=== PATIENT | female | born 1995 | race Caucasian/White ===

== ENCOUNTER 2022-07-04 01:47 | Emergency (ER) | payer SELFPAY ==
[2022-07-04] MEDS ORDERED: LEVETIRACETAM 500 MG/5 ML VIAL IV ONE (01:59)
[2022-07-04] MEDS ORDERED: NA CHLORIDE 0.9% 500 ML ONE (01:59)
[2022-07-04] MEDS ORDERED: NA CHLORIDE 0.9% 100 ML IV ONE ×2 (02:19→02:40)
[2022-07-04 02:28] LABS: Urine Bacteria None Seen /HPF (<20); Urine Mucus Slight /HPF (None Seen); Urine RBC <5 /HPF (None Seen)
[2022-07-04 02:28] LABS: Urine Blood Negative (Negative); Urine Glucose Negative (Negative); Urine Protein Negative (Negative); Urine Specific Gravity >=1.030 (1.005-1.030)
[2022-07-04 02:31] LABS: Absolute Lymphocytes (CBC) 2.3 K/uL (0.7-4.9); Hematocrit 37.2 % (36.0-45.0); Lymphocytes % 30.3 % (15.3-44.8); MCV 95.4 fL (80-100); MPV 8.2 fL (7.6-11.3)
[2022-07-04] MEDS ORDERED: PIPERACIL/TAZO 3.375 GM VIAL IV ONE (02:40)
--- NOTE | 2022-07-04 03:04 | ER ---
Nurse's Notes [facility] Name: Senia Siddiqui Age: 27 yrs Sex: Female : 1995 Arrival Date: 07/04/2022 Time: 01:49 Bed 4 Private MD: Diagnosis: Epileptic seizures related to external causes, not intractable, without status epilepticus Presentation: 07/04 01:50 Chief complaint: EMS states: seizure activity x 4 over last 2 hours each lasting approx kl 30 sec to 1 min pt has history of seizure not currently on seizure medication. Coronavirus screen:. Risk Assessment: Do you want to hurt yourself or someone else? Patient reports no desire to harm self or others. 01:50 Method Of Arrival: EMS: [facility] 01:50 Acuity: PERRI 3 kl Triage Assessment: 01:52 General: Appears in no apparent distress. slender, Behavior is calm, cooperative. Pain: kl Complains of pain in headache. Neuro: Level of Consciousness is awake, alert, obeys commands, Oriented to person, place, time, situation, Speech is normal, Facial symmetry appears normal, Pupils are PERRLA. Historical: - Allergies: 01:51 No Known Allergies; kl - Home Meds: 01:51 None [Active]; kl - PMHx: 01:51 Seizure; Migraine; kl - Social history:: Smoking status: Reported history of juuling and/or vaping. - Family history:: not pertinent. - Hospitalizations: : No recent hospitalization is reported. Screenin:52 [facility] ED Fall Risk Assessment (Adult) History of falling in the last 3 months, jb4 including since admission No falls in past 3 months (0 pts) Confusion or Disorientation No (0 pts) Score/Fall Risk Level 0 - 2 = Low Risk Oriented to surroundings, Maintained a safe environment. Abuse screen: Denies threats or abuse. Nutritional screening: No deficits noted. Tuberculosis screening: No symptoms or risk factors identified. Fall Risk No fall in past 12 months (0 pts). Secondary diagnosis (15 points) seizures, IV access (20 points). Total Canales Fall Scale indicates Low Risk Score (25-44 pts). Fall prevention measures have been instituted. Side Rails Up X 2 Placed close to Nursing Station Frequent Obs/Assesments occuring As available Patient and Family Educated on Fall Prevention Program and strategies. 01:53 Abuse screen: Denies threats or abuse. Denies injuries from another. aa9 Assessment: 01:52 General: Appears in no apparent distress. comfortable, Behavior is calm, cooperative, jb4 appropriate for age. Pain: Complains of pain in Headache Pain currently is 6 out of 10 on a pain scale. Neuro: Level of Consciousness is awake, alert, obeys commands, Oriented to person, place, time, situation. Cardiovascular: Patient's skin is warm and dry. Respiratory: Airway is patent Respiratory effort is even, unlabored, Respiratory pattern is regular, symmetrical. GI: No signs and/or symptoms were reported involving the gastrointestinal system. : No signs and/or symptoms were reported regarding the genitourinary system. EENT: No signs and/or symptoms were reported regarding the EENT system. Derm: Skin is intact, Skin is pink, warm \T\ dry. Musculoskeletal: Circulation, motion, and sensation intact. Range of motion: intact in all extremities. 03:26 Reassessment: Patient appears in no apparent distress at this time. Patient and/or jb4 family updated on plan of care and expected duration. Pain level reassessed. Patient is alert, oriented x 3, equal unlabored respirations, skin warm/dry/pink. Vital Signs: 01:50 BP 119 / 85; Pulse 89; Resp 23 S; Temp 98.2(O); Pulse Ox 99% on R/A; aa9 01:50 BP 119 / 85; Pulse 100; Resp 18; Pulse Ox 98% on R/A; kl 02:06 BP 122 / 88; Pulse 101; Resp 24; Pulse Ox 99% on R/A; aa9 03:26 BP 100 / 60; Pulse 78; Resp 16; Pulse Ox 99% on R/A; jb4 ED Course: 01:49 Patient arrived in ED. kl 01:50 Myrna Love, YANELY is Primary Nurse. aa9 01:51 Martín Hale MD is Attending Physician. rn 01:51 Triage completed. kl 01:52 Patient has correct armband on for positive identification. Placed in gown. Bed in low jb4 position. Call light in reach. Side rails up X 1. Client placed on continuous cardiac and pulse oximetry monitoring. NIBP monitoring applied. residential monitor on. 02:06 CBC with Diff Sent. jb4 02:06 Basic Metabolic Panel Sent. jb4 02:28 Urine Microscopic Only Sent. as7 03:03 Dick Becerra MD is Referral Physician. rn 03:27 No provider procedures requiring assistance completed. IV discontinued, intact, jb4 bleeding controlled, No redness/swelling at site. Pressure dressing applied. Administered Medications: 02:25 Drug: NS 0.9% 500 ml Route: IV; Rate: bolus; Site: left antecubital; aa9 02:45 Follow up: Response: No adverse reaction; IV Status: Completed infusion; IV Intake: aa9 500ml 02:25 Drug: Keppra (levETIRAcetam) 1000 mg Route: IV; Rate: calculated rate; Site: left aa9 antecubital; 02:45 Follow up: Response: No adverse reaction; IV Status: Completed infusion; IV Intake: aa9 100ml Medication: 03:26 VIS not applicable for this client. jb4 Intake: 02:45 IV: 100ml; Total: 100ml. aa9 02:45 IV: 500ml; Total: 600ml. aa9 Outcome: 03:04 Discharge ordered by . rn 03:27 Discharged to home ambulatory. jb4 03:27 Condition: stable 03:27 Discharge instructions given to patient, family, Instructed on discharge instructions, follow up and referral plans. medication usage, Demonstrated understanding of instructions, follow-up care, medications, Prescriptions given X 1. 03:28 Patient left the ED. jb4 Signatures: Samantha Holman RN RN kl Nieto, Roman, MD MD rn Bryson, James, RN RN jb4 Myrna Love RN RN aa9 Melissa Sultana as7 Corrections: (The following items were deleted from the chart) 02:07 01:52 Pain: Denies pain. jb4 jb4
--- NOTE | 2022-07-04 03:04 | EDPHYS ---
Physician Documentation [facility] Name: Senia Siddiqui Age: 27 yrs Sex: Female : 1995 Arrival Date: 07/04/2022 Time: 01:49 Bed 4 Private MD: ED Physician Martín Hale HPI: 07/04 02:01 This 27 yrs old Female presents to ER via EMS with complaints of seizure. rn 02:01 The patient presents with a history of multiple seizures. Character of seizure(s): Loss rn of consciousness: it is not known if the patient experienced loss of consciousness, Motor activity: generalized, Incontinence: none, Apnea: the patient did not experience apnea, Circulation: the patient did not experience evidence of pulse disturbance. Seizure onset: just prior to arrival. Associated injury: The patient did not suffer any apparent associated injury. Current symptoms: headache. The patient has experienced similar episodes in the past. The patient has not recently seen a physician. Pt reports at [employer], has multiple seizures, has known seizures since teenager, has had ct scans and sleep studies without clear etiology. Pt has never been put on medication for seizures. No fever or recent illness. Did have a little ETOH tonight. Only given zofran by EMS. . Historical: - Allergies: 01:51 No Known Allergies; kl - Home Meds: 01:51 None [Active]; kl - PMHx: 01:51 Seizure; Migraine; kl - Social history:: Smoking status: Reported history of juuling and/or vaping. - Family history:: not pertinent. - Hospitalizations: : No recent hospitalization is reported. ROS: 02:01 Constitutional: Negative for fever, chills, and weight loss, Eyes: Negative for injury, rn pain, redness, and discharge, Neck: Negative for injury, pain, and swelling, Cardiovascular: Negative for chest pain, palpitations, and edema, Respiratory: Negative for shortness of breath, cough, wheezing, and pleuritic chest pain, Abdomen/GI: Negative for abdominal pain, nausea, vomiting, diarrhea, and constipation, Back: Negative for injury and pain, MS/Extremity: Negative for injury and deformity, Skin: Negative for injury, rash, and discoloration, Neuro: Negative for weakness, numbness, tingling Exam: 02:01 Constitutional: This is a well developed, well nourished patient who is awake, alert, rn and in no acute distress. Head/Face: Normocephalic, atraumatic. Eyes: Pupils equal round and reactive to light, extra-ocular motions intact. Periorbital areas with no swelling, redness, or edema. Cardiovascular: Tachycardic, regular. No pulse deficits. Respiratory: Speaking full sentences, unlabored. No increased work of breathing, no retractions or nasal flaring. Abdomen/GI: Soft, non-tender Skin: Warm, dry with normal turgor. Normal color with no rashes, no lesions, and no evidence of cellulitis. MS/ Extremity: Pulses equal, no cyanosis. Neuro: Awake and alert, GCS 15, oriented to person, place, time, and situation. Cranial nerves II-XII grossly intact. Motor strength 5/5 in all extremities. Sensory grossly intact. Vital Signs: 01:50 BP 119 / 85; Pulse 89; Resp 23 S; Temp 98.2(O); Pulse Ox 99% on R/A; aa9 01:50 BP 119 / 85; Pulse 100; Resp 18; Pulse Ox 98% on R/A; kl 02:06 BP 122 / 88; Pulse 101; Resp 24; Pulse Ox 99% on R/A; aa9 03:26 BP 100 / 60; Pulse 78; Resp 16; Pulse Ox 99% on R/A; jb4 MDM: 01:51 Patient medically screened. rn 03:03 Differential diagnosis: seizure. Data reviewed: vital signs, nurses notes, lab test rn result(s), and as a result, I will discharge patient. Counseling: I had a detailed discussion with the patient and/or guardian regarding: the historical points, exam findings, and any diagnostic results supporting the discharge/admit diagnosis, lab results, the need for outpatient follow up, to return to the emergency department if symptoms worsen or persist or if there are any questions or concerns that arise at home. Response to treatment: the patient's symptoms have markedly improved after treatment, the patient's symptoms have resolved after treatment, the patient's condition has returned to base line, the patient is now symptom free, and as a result, I will discharge patient. Special discussion: I discussed with the patient/guardian in detail that at this point there is no indication for admission to the hospital. It is understood, however, that if the symptoms persist or worsen the patient needs to return immediately for re-evaluation. Based on the history and exam findings, there is no indication for further emergent testing or inpatient evaluation. I discussed with the patient/guardian the need to see the neurologist for further evaluation of the symptoms. 07/04 01:54 Order name: CBC with Diff; Complete Time: 02:51 rn 07/04 01:54 Order name: Basic Metabolic Panel; Complete Time: 02:51 rn 07/04 01:54 Order name: Urine Microscopic Only; Complete Time: 02:51 rn 07/04 02:28 Order name: Urine Dipstick-Ancillary; Complete Time: 02:51 EDMS 07/04 02:38 Order name: Urine --Ancillary (enter results) 07/04 01:54 Order name: IV Start; Complete Time: 01:56 rn 07/04 01:54 Order name: Urine Dipstick-Ancillary (obtain specimen); Complete Time: 02:28 rn 07/04 01:54 Order name: Urine Test (obtain specimen); Complete Time: 02:28 rn Administered Medications: 02:25 Drug: NS 0.9% 500 ml Route: IV; Rate: bolus; Site: left antecubital; aa9 02:45 Follow up: Response: No adverse reaction; IV Status: Completed infusion; IV Intake: aa9 500ml 02:25 Drug: Keppra (levETIRAcetam) 1000 mg Route: IV; Rate: calculated rate; Site: left aa9 antecubital; 02:45 Follow up: Response: No adverse reaction; IV Status: Completed infusion; IV Intake: aa9 100ml Disposition Summary: 07/04/22 03:04 Discharge Ordered Location: Home rn Problem: an ongoing problem rn Symptoms: have improved rn Condition: Stable rn Diagnosis - Epileptic seizures related to external causes, not intractable, without status rn epilepticus Followup: rn - With: Dick Becerra MD - When: As needed - Reason: Recheck today's complaints, Re-evaluation by your physician Discharge Instructions: - Discharge Summary Sheet rn - Epilepsy rn - Seizure, Adult rn Forms: - Medication Reconciliation Form rn - Thank You Letter rn - Antibiotic rn otolaryngology - Prescription Opioid Use rn Prescriptions: - Keppra 500 mg Oral Tablet - take 1 tablet by ORAL route every 12 hours; 120 tablet; Refills: 0, Product rn Selection Permitted Signatures: Dispatcher [employer] Samantha Vasquez, RN Martín Olivas MD MD rn Avalos, Aylin, RN RN aa9
[2022-07-04 03:47] VITALS: TEMP 98.2; O2SAT 99
[2022-07-04 03:49] VITALS: BP 100/60
[2022-07-04 03:52] LABS: Urine Specific Gravity/Preg >1.030 (1.005-1.030)
== END 2022-07-04 03:28 | disposition home or self-care (01) ==
LOC: ER 01:47
DX: G40.509 Epileptic seizures related to external causes, not intractable, without status epilepticus (principal)
CPT/HCPCS: 36415; 80048; 81003; 81015; 81025; 85025; 96365; 99284; J1953; J2543; J7040

== ENCOUNTER 2023-03-08 18:40 | Emergency (ER) | payer SELFPAY ==
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
--- NOTE | 2023-03-08 19:21 | EDPHYS ---
Physician Documentation [facility] Name: Senia Siddiqui Age: 27 yrs Sex: Female : 1995 Arrival Date: 03/08/2023 Time: 18:40 Bed 13 Private MD: ED Physician Luis Antonio Lemus HPI: 03/08 23:04 This 27 yrs old Female presents to ER via Ambulatory with complaints of eye droop, snw tongue numbness. 23:04 Onset: The symptoms/episode began/occurred acutely, 2 day(s) ago, and became snw persistent. Associated signs and symptoms: Pertinent positives: blinking delay to left eyelid, tongue with decreased sensation. The patient has not experienced similar symptoms in the past. The patient has not recently seen a physician. Historical: - Allergies: 19:00 No Known Allergies; hb - Home Meds: 19:00 None [Active]; hb - PMHx: 19:00 Migraine; Seizure; hb - PSHx: 19:00 None; hb - Immunization history:: Adult Immunizations up to date. - Social history:: Smoking status: Patient denies any tobacco usage or history of. ROS: 22:43 Constitutional: Negative for fever, chills, and weight loss. snw 22:43 Eyes: Positive for blinking delay. 23:03 Neck: Negative for injury, pain, and swelling, Cardiovascular: Negative for chest pain, snw palpitations, and edema, Respiratory: Negative for shortness of breath, cough, wheezing, and pleuritic chest pain, Abdomen/GI: Negative for abdominal pain, nausea, vomiting, diarrhea, and constipation, Back: Negative for injury and pain, : Negative for injury, bleeding, discharge, and swelling, MS/Extremity: Negative for injury and deformity, Skin: Negative for injury, rash, and discoloration, Neuro: Negative for headache, weakness, numbness, tingling, and seizure, Psych: Negative for depression, anxiety, suicide ideation, homicidal ideation, and hallucinations. 23:03 ENT: Positive for tongue felt slightly numb to left and right front, tenderness to right jaw, ear. Exam: 21:42 Constitutional: This is a well developed, well nourished patient who is awake, alert, snw and in no acute distress. Head/Face: Normocephalic, atraumatic. Neck: Trachea midline, no thyromegaly or masses palpated, and no cervical lymphadenopathy. Supple, full range of motion without nuchal rigidity, or vertebral point tenderness. No Meningismus. Chest/axilla: Normal chest wall appearance and motion. Nontender with no deformity. No lesions are appreciated. Cardiovascular: Regular rate and rhythm with a normal S1 and S2. No gallops, murmurs, or rubs. Normal PMI, no JVD. No pulse deficits. Respiratory: Lungs have equal breath sounds bilaterally, clear to auscultation and percussion. No rales, rhonchi or wheezes noted. No increased work of breathing, no retractions or nasal flaring. Abdomen/GI: Soft, non-tender, with normal bowel sounds. No distension or tympany. No guarding or rebound. No evidence of tenderness throughout. Back: No spinal tenderness. No costovertebral tenderness. Full range of motion. Skin: Warm, dry with normal turgor. Normal color with no rashes, no lesions, and no evidence of cellulitis. MS/ Extremity: Pulses equal, no cyanosis. Neurovascular intact. Full, normal range of motion. Neuro: Awake and alert, GCS 15, oriented to person, place, time, and situation. Cranial nerves II-XII grossly intact. Motor strength 5/5 in all extremities. Sensory grossly intact. Cerebellar exam normal. Normal gait. Psych: Awake, alert, with orientation to person, place and time. Behavior, mood, and affect are within normal limits. 21:42 Eyes: Periorbital structures: appear normal, Pupils: no acute changes, Extraocular movements: no acute changes, Conjunctiva: normal, Lids and lashes: left eyelid slow to close. 21:42 ENT: Mouth: is normal, Posterior pharynx: is normal, Dental exam: Tenderness to TMJ area right greater than left. Vital Signs: 18:59 BP 122 / 84; Pulse 77; Resp 16; Temp 98.3; Pulse Ox 100% on R/A; Weight 56.7 kg; Height hb 5 ft. 6 in. ; Pain 0/10; 19:56 BP 120 / 76; Pulse 78; Resp 18 S; Pulse Ox 100% on R/A; db 18:59 Body Mass Index 20.18 (56.70 kg, 167.64 cm) hb 18:59 Pain Scale: Adult hb MDM: 19:08 Patient medically screened. benedict 19:18 Differential diagnosis: viral Infection, bacterial infection. Data reviewed: vital snw signs, nurses notes, lab test result(s). 23:05 I considered the following discharge prescriptions or medication management in the [facility] emergency department Medications were administered in the Emergency Department. See MAR. Counseling: I had a detailed discussion with the patient and/or guardian regarding the historical points, exam findings, and any diagnostic results supporting the discharge/admit diagnosis, the need for outpatient follow up, for definitive care, to return to the emergency department if symptoms worsen or persist or if there are any questions or concerns that arise at home. Special discussion: Based on the history and exam findings, there is no indication for further emergent testing or inpatient evaluation. I discussed with the patient/guardian the need to see the primary care provider for further evaluation of the symptoms. 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, unspecified snw Followup: snw - With: Emergency Department - When: As needed - Reason: Worsening of condition Followup: snw - With: Private Physician - When: 5 - 6 days - Reason: Recheck today's complaints, Continuance of care, Re-evaluation by your physician Discharge Instructions: - Discharge Summary Sheet snw - Tillman's Palsy, Adult snw - Temporomandibular Joint Syndrome snw - Dry Eye snw - Rehydration, Adult snw Forms: - Medication Reconciliation Form snw - Thank You Letter snw - Antibiotic Education snw - Prescription Opioid Use snw - Patient Portal Instructions snw - Leadership Thank You Letter snw Prescriptions: - valacyclovir 1 gram Oral tablet - take 1 tablet by ORAL route 3 times per day; 21 tablet; Refills: 0, Product snw Selection Permitted - Prednisone 20 mg Oral Tablet - take 2 tablets by ORAL route once daily for 5 days; 10 tablet; Refills: 0, snw Product Selection Permitted - Pepcid 20 mg Oral Tablet - take 1 tablet by ORAL route once daily; 20 tablet; Refills: 0, Product snw Selection Permitted Signatures: Luis Antonio Lemus MD MD cha Waters, Shelly, DANIEL-C [employer]-Csnw Jeanne Castañeda RN RN Crystal Ayers RN RN db
--- NOTE | 2023-03-08 19:21 | ER ---
Nurse's Notes [facility] Name: Senia Siddiqui Age: 27 yrs Sex: Female : 1995 Arrival Date: 03/08/2023 Time: 18:40 Bed 13 Private MD: Diagnosis: Tillman's palsy;Temporomandibular joint disorder, unspecified Presentation: 03/08 18:59 Chief complaint: Patient states: "My tongue has been numb for a week, today my left eye hb feels droopy and is blinking a lot, now my eye and left cheek are twitching.". Coronavirus screen: At this time, the client does not indicate any symptoms associated with coronavirus-19. Ebola Screen: No symptoms or risks identified at this time. Initial Sepsis Screen: Does the patient meet any 2 criteria? No. Patient's initial sepsis screen is negative. Does the patient have a suspected source of infection? No. Patient's initial sepsis screen is negative. Risk Assessment: Do you want to hurt yourself or someone else? Patient reports no desire to harm self or others. Onset of symptoms was March 02, 2023. 18:59 Method Of Arrival: Ambulatory hb 18:59 Acuity: PERRI 3 hb Historical: - Allergies: 19:00 No Known Allergies; hb - Home Meds: 19:00 None [Active]; hb - PMHx: 19:00 Migraine; Seizure; hb - PSHx: 19:00 None; hb - Immunization history:: Adult Immunizations up to date. - Social history:: Smoking status: Patient denies any tobacco usage or history of. Screenin:56 [facility] ED Fall Risk Assessment (Adult) History of falling in the last 3 months, db including since admission No falls in past 3 months (0 pts) Confusion or Disorientation No (0 pts) Intoxicated or Sedated No (0 pts) Impaired Gait No (0 pts) Mobility Assist Device Used No (0 pt) Altered Elimination No (0 pt) Score/Fall Risk Level 0 - 2 = Low Risk Oriented to surroundings, Maintained a safe environment, Educated pt \\T\\ family on fall prevention, incl call for assistance when getting out of bed. Abuse screen: Denies threats or abuse. Denies injuries from another. Nutritional screening: No deficits noted. Tuberculosis screening: No symptoms or risk factors identified. Assessment: 19:30 General: Appears comfortable, Behavior is calm, cooperative. Pain: Complains of pain in db Jaw Pain does not radiate. Pain currently is 2 out of 10 on a pain scale. Quality of pain is described as pressure. Neuro: Level of Consciousness is awake, alert, obeys commands, Oriented to person, place, time, situation. Cardiovascular: Patient's skin is warm and dry. Respiratory: Airway is patent Respiratory effort is even, unlabored, Respiratory pattern is regular, symmetrical. GI: No signs and/or symptoms were reported involving the gastrointestinal system. Derm: Skin is pink, warm \\T\\ dry. Vital Signs: 18:59 BP 122 / 84; Pulse 77; Resp 16; Temp 98.3; Pulse Ox 100% on R/A; Weight 56.7 kg; Height hb 5 ft. 6 in. ; Pain 0/10; 19:56 BP 120 / 76; Pulse 78; Resp 18 S; Pulse Ox 100% on R/A; db 18:59 Body Mass Index 20.18 (56.70 kg, 167.64 cm) hb 18:59 Pain Scale: Adult hb ED Course: 18:44 Patient arrived in ED. im 19:00 Triage completed. hb 19:00 Arm band placed on. hb 19:00 Patient has correct armband on for positive identification. Placed in gown. Bed in low db position. Call light in reach. Side rails up X 1. 19:03 [facility] Hairst[facility]C [facility] snw 19:03 Luis Antonio Lemus MD is Attending Physician. snw 19:52 Crystal Ayers RN is Primary Nurse. db 19:57 No provider procedures requiring assistance completed. Patient did not have IV access db during this emergency room visit. Administered Medications: 19:45 Drug: predniSONE PO 40 mg Route: PO; db 19:58 Follow up: Response: No adverse reaction db 19:45 Drug: Famotidine PO 20 mg Route: PO; db 19:58 Follow up: Response: No adverse reaction db 19:45 Drug: Acyclovir PO 800 mg Route: PO; db 19:58 Follow up: Response: No adverse reaction db Medication: 19:57 VIS not applicable for this client. db Outcome: 19:20 Discharge ordered by . snw 19:57 Discharged to home ambulatory. db 19:57 Condition: stable 19:57 Discharge instructions given to patient, Instructed on discharge instructions, follow up and referral plans. medication usage, Demonstrated understanding of instructions, follow-up care, medications, Prescriptions given X 3. 19:58 Patient left the ED. db Signatures: Razia Hairston, PRECISION MACHINE OPERATOR-C PRECISION MACHINE OPERATOR-Csnw Jeanne Castañeda, RN RN Crystal Ayers RN RN Unique Riley
[2023-03-08] MEDS ORDERED: predniSONE 10 MG TAB ONE (19:40)
[2023-03-08] MEDS ORDERED: FAMOTIDINE 20 MG TAB ONE (19:41)
[2023-03-08] MEDS ORDERED: ACYCLOVIR 400 MG TABLET ONE (19:41)
[2023-03-08 20:03] VITALS: TEMP 98.3; O2SAT 100
[2023-03-08 20:04] VITALS: BP 120/76
== END 2023-03-08 19:58 | disposition home or self-care (01) ==
LOC: ER 18:40
DX: G51.0 Bell's palsy (principal); M26.601 Right temporomandibular joint disorder, unspecified
CPT/HCPCS: 99283; J7512